=== PATIENT | female | born 1960 | race Caucasian/White ===

== ENCOUNTER → 2021-07-10 | Outpatient (CLI) | payer OTHER | LOC: MAMMO 08:14 | DX: Z12.31 Encounter for screening mammogram for malignant neoplasm of breast (principal); N63.20 Unspecified lump in the left breast, unspecified quadrant; N64.89 Other specified disorders of breast ==

== ENCOUNTER → 2021-07-18 | Outpatient (CLI) | payer OTHER | LOC: MAMMO 13:39 | DX: N63.20 Unspecified lump in the left breast, unspecified quadrant (principal); N64.89 Other specified disorders of breast; R92.8 Other abnormal and inconclusive findings on diagnostic imaging of breast ==

== ENCOUNTER → 2021-07-22 | Outpatient (CLI) | payer OTHER | LOC: RAD 07:27 | DX: N63.23 Unspecified lump in the left breast, lower outer quadrant (principal); Z98.82 Breast implant status | CPT/HCPCS: 15989; 15990; A4648 ==

== ENCOUNTER → 2021-10-28 | Day surgery (SDC) | payer OTHER | LOC: MSO 08:27 | DX: K62.7 Radiation proctitis (principal); I10 Essential (primary) hypertension; Z85.41 Personal history of malignant neoplasm of cervix uteri; Z92.3 Personal history of irradiation; Z92.21 Personal history of antineoplastic chemotherapy; Z79.899 Other long term (current) drug therapy | CPT/HCPCS: 00811; J2704; J7120 ==